=== PATIENT | female | born 1985 | race Caucasian/White ===

== ENCOUNTER 2022-08-26 04:11 | Emergency (ER) | payer SELFPAY ==
[2022-08-26] MEDS ORDERED: levETIRAcetam 1,000 MG in Sodium Chloride 0.9% 100 ML IV ONE (04:21)
[2022-08-26 05:00] LABS: ESTIMATED GFR 85 mL/min (>60)
== END 2022-08-26 08:34 | disposition home or self-care (01) ==
LOC: JD.ED 04:11
DX: G40.909 Epilepsy, unspecified, not intractable, without status epilepticus (principal); Z91.14 Patient's other noncompliance with medication regimen; Z72.0 Tobacco use; Z88.0 Allergy status to penicillin; Z88.8 Allergy status to other drugs, medicaments and biological substances; Z79.899 Other long term (current) drug therapy
CPT/HCPCS: 36415; 70450; 80053; 81001; 85025; 96374; 99285; J1953; 99284